=== PATIENT | female | born 2005 | race Hispanic/Latino ===

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

== ENCOUNTER 2023-02-23 19:44 | Emergency (ER) | payer OTHER | END 2023-02-23 20:25 | disposition home or self-care (01) | LOC: MADERS 19:44 | DX: J02.9 Acute pharyngitis, unspecified (principal) | CPT/HCPCS: 99281 ==

== ENCOUNTER 2023-05-24 08:38 | Emergency (ER) | payer OTHER, SELFPAY ==
[~2023-05-24 08:38] MED LIST changes: +Fluorescein Opthalmic Strip ONE; -Iopamidol 370 76% 100 ML VIAL ONE; +Lidocaine 1% PF 5 ML VIAL ONE; +Tetracaine 0.5% PF 4 ML BOT ONE; +cefTRIAXone (ROCEPHIN) 1 GM VIAL ONE
[2023-05-24 09:20] LABS: Bilirubin Negative (Negative); Blood, Urine Negative (Negative); Clarity Clear (Clear); Glucose, Urine (Dipstick) Negative (Negative); Ketone, Urine Negative (Negative); Leukocyte Negative (Negative); Nitrite Negative (Negative); Pregnancy Test - Urine (BHCG) Negative (Negative); Pregu Control Background? CLEAR/WHITE (CLR/WHITE); Pregu Control Bar Appear? YES (CONTROL BAR); Protein, Urine (Dipstick) Negative (Neg-Trace); Urobilinogen 0.2 mg/dL (Less than 2); pH, Urine 7.5 (5.0-9.0)
[2023-05-24 09:27] LABS: Bacteria/HPF Rare-Few HPF (None Seen); CAUTI Indications for Culture Pelvic or flank pain; Mucous/LPF Few LPF (<2+); RBC/HPF 0-3 HPF (0-3); Squamous Epithelial 0-3 HPF (0-3); Yeast-Budding Rare HPF (None Seen)
[2023-05-24 09:28] LABS: Urine Culture Reflex No No
[2023-05-24 20:34] LABS: Chlamydia by PCR, Vaginal Swab Not Detected (NotDetected); GC by PCR, Vaginal Swab Not Detected (NotDetected)
== END 2023-05-24 09:50 | disposition home or self-care (01) ==
LOC: MADERS 08:38
DX: H10.9 Unspecified conjunctivitis (principal); N89.8 Other specified noninflammatory disorders of vagina; Z79.4 Long term (current) use of insulin; Z79.84 Long term (current) use of oral hypoglycemic drugs; Z79.899 Other long term (current) drug therapy
CPT/HCPCS: 81001; 81025; 87480; 87491; 87510; 87591; 87660; 96372; 99283; J0696

== ENCOUNTER 2023-06-16 10:57 | Emergency (ER) | payer SELFPAY | END 2023-06-16 11:49 | disposition home or self-care (01) | LOC: MADERS 10:57 | DX: H68.102 Unspecified obstruction of Eustachian tube, left ear (principal); H92.02 Otalgia, left ear; F17.290 Nicotine dependence, other tobacco product, uncomplicated | CPT/HCPCS: 99282 ==

== ENCOUNTER 2024-03-20 12:26 | Emergency (ER) | payer OTHER, SELFPAY ==
[2024-03-20 13:03] LABS: Bilirubin Small (Negative); Blood, Urine Negative (Negative); Clarity Clear (Clear); Glucose, Urine (Dipstick) Negative (Negative); Ketone, Urine Negative (Negative); Leukocyte Trace (Negative); Nitrite Negative (Negative); Protein, Urine (Dipstick) 30 mg/dL (Neg-Trace); Specific Gravity, Urine 1.025 (1.005-1.030); Urobilinogen 0.2 mg/dL (Less than 2)
[2024-03-20 13:07] LABS: Pregnancy Test - Urine (BHCG) Negative (Negative); Pregu Control Background? CLEAR/WHITE (CLR/WHITE); Pregu Control Bar Appear? YES (CONTROL BAR); Specific Gravity 1.025 (1.002-1.036)
[2024-03-20 13:14] LABS: CAUTI Indications for Culture Dysuria,urgency,freq; RBC/HPF 0-3 HPF (0-3); WBC/HPF 0-3 HPF (0-3)
[2024-03-20 13:15] LABS: Bacteria/HPF Rare-Few HPF (None Seen)
[2024-03-20 13:16] LABS: Urine Culture Reflex No No
[2024-03-20] MEDS ORDERED: metroNIDAZOLE 250 MG TAB ONE (14:05)
[2024-03-20] MEDS ORDERED: Doxycycline 100 MG CAP ONE (14:06)
[2024-03-20] MEDS ORDERED: Lidocaine 1% PF 5 ML VIAL ONE (14:06)
[2024-03-20] MEDS ORDERED: cefTRIAXone (ROCEPHIN) 500 MG VIAL ONE (14:06)
[2024-03-21 05:33] LABS: Chlamydia by PCR, Vaginal Swab Not Detected (NotDetected); GC by PCR, Vaginal Swab Not Detected (NotDetected)
== END 2024-03-20 14:40 | disposition home or self-care (01) ==
LOC: MADERS 12:26
DX: N72 Inflammatory disease of cervix uteri (principal); F17.290 Nicotine dependence, other tobacco product, uncomplicated
CPT/HCPCS: 81001; 81025; 87480; 87491; 87510; 87591; 87660; 96372; 99284; J0696

== ENCOUNTER 2025-02-18 00:19 | Emergency (ER) | payer OTHER ==
[2025-02-18 00:38] LABS: Glucose, Urine (Dipstick) Negative (Negative); Leukocyte Large (Negative); Protein, Urine (Dipstick) 100 mg/dL (Neg-Trace); Specific Gravity, Urine Greater/Equal 1.030 (1.005-1.030)
[2025-02-18 00:40] LABS: Bacteria/HPF 2+ HPF (None Seen); CAUTI Indications for Culture Pregnancy; WBC/HPF 21-50 HPF (0-3)
[2025-02-18 00:41] LABS: Urine Culture Reflex Yes Yes
[2025-02-18] MEDS ORDERED: cefTRIAXone (ROCEPHIN) 1 GM VIAL ONE (00:49)
[2025-02-18] MEDS ORDERED: Lidocaine 1% PF 5 ML VIAL ONE (00:49)
== END 2025-02-18 01:17 | disposition home or self-care (01) ==
LOC: MADERS 00:19
DX: O23.41 Unspecified infection of urinary tract in pregnancy, first trimester (principal); N39.0 Urinary tract infection, site not specified; O99.331 Smoking (tobacco) complicating pregnancy, first trimester; F17.290 Nicotine dependence, other tobacco product, uncomplicated; Z3A.01 Less than 8 weeks gestation of pregnancy
CPT/HCPCS: 81001; 87086; 96372; J0696